=== PATIENT | male | born 1995 | race Caucasian/White ===

== ENCOUNTER 2020-02-06 15:05 | Emergency (ER) | payer OTHER ==
--- NOTE | 2020-02-06 15:08 | ERPHSYRPT ---
- History of Present Illness Time Seen by Provider: 02/06/20 15:08 Source: patient Exam Limitations: no limitations Physician History: This is a 24-year-old right-handed white male who accidentally pushed his right hand through a glass window and suffered a laceration which was repaired approximately 8 days ago. He has [address] He had x-ray performed of his right hand at the time of the injury in an emergency department in [facility]. He states that he was told there was no abnormality on the x- ray. Patient is neurovascularly intact and can move his fingers of the right hand normally. However, he is concerned because there is persistent swelling and tenderness present. There is been no fever and no expressible fluid present. Occurred: days ago (8) Method of Injury: other (Suddenly pushed his hand through a glass window), fell Quality: sharpness (Lysed pain) Severity of Pain-Max: mild Severity of Pain-Current: mild Extremities Pain Location: hand: right, 3rd finger: right (Proximal) Associated Symptoms: none Allergies/Adverse Reactions: No Known Drug Allergies Allergy (Verified 02/06/20 15:16) Travel Risk - International Travel Have you traveled outside of the country in past 3 weeks: No - Coronavirus Screening Are you exhibiting any of the following symptoms?: No Close contact with a COVID-19 positive Pt in past 14-21 Days: No - Review of Systems Constitutional: No Symptoms Eyes: No Symptoms Ears, Nose, & Throat: No Symptoms Respiratory: No Symptoms Cardiac: No Symptoms Abdominal/Gastrointestinal: No Symptoms Genitourinary Symptoms: No Symptoms Musculoskeletal: Other (Tenderness and swelling in the area of the prior laceration repair site, palmar and dorsal aspects) Skin: No Symptoms Neurological: No Symptoms Psychological: No Symptoms Endocrine: No Symptoms Hematologic/Lymphatic: No Symptoms Immunological/Allergic: No Symptoms All Other Systems: Reviewed and Negative - Past Medical History Pertinent Past Medical History: No Neurological History: No Pertinent History ENT History: No Pertinent History Cardiac History: No Pertinent History Respiratory History: No Pertinent History Endocrine Medical History: No Pertinent History Musculoskeletal History: No Pertinent History GI Medical History: No Pertinent History History: No Pertinent History Psycho-Social History: No Pertinent History Male Reproductive Disorders: No Pertinent History - Past Surgical History Past Surgical History: No Neuro Surgical History: No Pertinent History Cardiac: No Pertinent History Respiratory: No Pertinent History Gastrointestinal: No Pertinent History Genitourinary: No Pertinent History Musculoskeletal: No Pertinent History Male Surgical History: No Pertinent History - Nursing Vital Signs Nursing Vital Signs: Initial Vital Signs Temperature 97.8 F 02/06/20 15:10 Pulse Rate 57 L 02/06/20 15:10 Respiratory Rate 18 02/06/20 15:10 Blood Pressure 130/83 02/06/20 15:10 O2 Sat by Pulse Oximetry 99 02/06/20 15:10 Pain Scale Pain Intensity 4 - Physical Exam General Appearance: no apparent distress, alert, anxiety Eyes, Ears, Nose, Throat Exam: normal ENT inspection, moist mucous membranes Neck Exam: normal inspection, non-tender, supple, full range of motion Cardiovascular/Respiratory Exam: chest non-tender Abdominal Exam: non-tender Back Exam: normal inspection, normal range of motion, No CVA tenderness, No vertebral tenderness Shoulder Exam: normal inspection, non-tender, no evidence of injury, normal ROM Elbow/Forearm Exam: normal inspection, non-tender, no evidence of injury, normal ROM Wrist Exam: normal inspection, non-tender, no evidence of injury, normal ROM Hand Exam: soft tissue tenderness (Mild and localized in the area of his laceration repair site on the palmar aspect as well as dorsal aspect), swelling (Mild swelling in the area of the laceration repair site on the palmar aspect as well as the dorsal aspect. There is no expressible pus present. There is no cellulitis present. The suture repair peer line has 3 nylon stitches remaining.) Neuro/Tendon Exam: normal sensation, normal motor functions, normal tendon functions, responds to pain, no evidence tendon injury Mental Status Exam: alert, oriented x 3, cooperative Skin Exam: normal color, warm, dry SpO2 Interpretation: normal O2 Delivery: Room Air - Course Nursing assessment & vital signs reviewed: Yes Ordered Tests: Active Orders 24 hr Category Date Time Status HAND (MINIMUM 3 VIEWS) Stat Exams 02/06/20 15:27 Taken - Progress Progress: unchanged, pain not gone completely Progress Note: 02/06/20 16:01 X-ray of the right hand reveals no evidence of any acute fracture or dislocation. I do not appreciate any foreign body present as well. Counseled pt/family regarding: diagnosis, need for follow-up, rad results - Departure Departure Disposition: Home Clinical Impression: Visit for suture removal, Hand pain, right, Swelling of right hand Condition: Stable Critical Care Time: No Additional Instructions: Use ibuprofen 600 mg orally with food 3 times a day for 5 days. Take antibiotic medication as prescribed. Soak your right hand twice a day and warm soapy water or warm Epson salt soaks. Follow-up with your primary care physician as an outpatient if symptoms persist. Prescriptions: Cephalexin Mh 500 mg [Keflex 500 mg] 500 mg PO TID #5 capsule
[2020-02-06 15:16] VITALS: O2SAT 99
[2020-02-06 16:29] VITALS: BP 138/83; PULSE 62
--- NOTE | 2020-02-06 21:54 | XRAY ---
Indication: Pain and swelling following injury through glass 8 days ago. Comparison: None 3 view right hand obtained. No bony, articular, or soft tissue abnormalities..
== END 2020-02-06 16:20 | disposition home or self-care (01) ==
LOC: ED 15:05
DX: Z48.02 Encounter for removal of sutures (principal)
CPT/HCPCS: 73130; 99284; G0463